=== PATIENT | female | born 1980 ===

== ENCOUNTER 2016-12-22 16:07 | Observation (INO) | payer MEDICAID ==
[2016-12-22 16:25] VITALS: BMI 28.1
[2016-12-22 16:28] VITALS: BP 109/72; PULSE 67; RESP 16; TEMP 99.2; O2SAT 100
--- NOTE | 2016-12-22 16:55 | ED PDOC ---
Arrival/HPI - General Chief Complaint: Female Genitourinary Time Seen by Provider: 12/22/16 16:39 Historian: Patient - History of Present Illness Narrative History of Present Illness (Text): 12/22/16 16:53 36yr old female: g4, p1, A2 presents today with vaginal spotting that started this morning. pt states she thinks she is about 6 weeks . pt has appointment with [facility] scheduled for next week. pt states today she noticed some brown discharge, then developed slight lower abdominal cramping. pt states just prior to coming the ER she noticed the discharge is now red. pt states it is still minimal discharge and has not filled up a pad yet. denies fever/chills. no cp or sob. no urinary symptoms. no back pain. no other complaints. Past Medical History - Provider Review Nursing Documentation Reviewed: Yes - Travel History Have you recently traveled outside [place] w/in the past 3 mons?: No - Infectious Disease Hx of Infectious Diseases: None - Past Medical History Past Medical History: No Previous - Renal Hx Kidney Stones: Yes - Musculoskeletal/Rheumatological Hx Falls: No - Psychiatric Hx Depression: No Hx Emotional Abuse: No Hx Physical Abuse: No Hx Substance Use: Yes (marijuana) - Past Surgical History Past Surgical History: No Previous - Surgical History Hx Appendectomy: Yes (1999) Other/Comment: ovarin cystectomy / January 2015 - Anesthesia Hx Anesthesia: Yes Hx Anesthesia Reactions: No Hx Malignant Hyperthermia: No - Suicidal Assessment Feels Threatened In Home Enviroment: No Family/Social History - Physician Review Nursing Documentation Reviewed: Yes Family/Social History: Unknown Family HX Smoking Status: Light Smoker < 10 Cigarettes Daily Hx Alcohol Use: Yes (social) Hx Substance Use: Yes (marijuana) Substance used: marijuana Hx Substance Use Treatment: No Allergies/Home Meds Allergies/Adverse Reactions: Allergies No Known Allergies Allergy (Verified 10/20/16 15:38) Review of Systems - Review of Systems Constitutional: absent: Fatigue, Fevers Respiratory: absent: SOB, Cough Cardiovascular: absent: Chest Pain, Palpitations Gastrointestinal: Abdominal Pain. absent: Constipation, Diarrhea, Nausea, Vomiting Genitourinary Female: Frequency, Vaginal Bleeding. absent: Dysuria, Hematuria, Vaginal Discharge Musculoskeletal: absent: Arthralgias, Back Pain, Neck Pain Skin: absent: Rash, Pruritis Neurological: absent: Headache, Dizziness Physical Exam Vital Signs Reviewed: Yes Vital Signs Temp Pulse Resp BP Pulse Ox 12/22/16 16:25 99.2 F 67 16 109/72 100 Temperature: Afebrile Blood Pressure: Normal Pulse: Regular Respiratory Rate: Normal Appearance: Positive for: Well-Appearing, Non-Toxic, Comfortable Pain Distress: None Mental Status: Positive for: Alert and Oriented X 3 - Systems Exam Head: Present: Atraumatic Neck: Present: Normal Range of Motion Respiratory/Chest: Present: Clear to Auscultation, Good Air Exchange. No: Respiratory Distress, Accessory Muscle Use Cardiovascular: Present: Regular Rate and Rhythm, Normal S1, S2. No: Murmurs Abdomen: Present: Normal Bowel Sounds. No: Tenderness, Distention, Peritoneal Signs, Rebound, Guarding Genitourinary/Pelvic Exam: Present: Normal External Genitalia, Vaginal Bleeding (minimal vaginal bleeding noted. ), Cervical os Closed, Other (chaparoned by daniel ABEBE RN). No: Vaginal Lesions, Adenexal Tenderness, Adenexal Mass, Cervical Motion Tendernes Back: Present: Normal Inspection. No: CVA Tenderness Skin: Present: Warm, Dry, Normal Color. No: Rashes Psychiatric: Present: Alert, Oriented x 3 Medical Decision Making ED Course and Treatment: 12/22/16 16:55 Patient is nontoxic well appearing in no distress. vital signs are stable. CBC: wnl CMP: wnl Beta hC.54 TYPE AND SCREEN: B+ Urinalysis: 10-15 white blood cells, trace leukocytes, positive bacteria Ultrasound:FINDINGS: Uterus: Uterus is retroflexed. The uterus measures approximately 9 x 5.5 x 5.6 cm. Endometrium measures approximately 14 mm in width. Left ovary: Left ovary measures approximately 2 x 2 x 2.1 cm. Right ovary: Right ovary could not be identified Fluid: There is no free fluid. IMPRESSION: Nonvisualization right ovary, no intrauterine or ectopic gestation identified TECHNIQUE: Real-time transvaginal obstetrical ultrasound of the maternal pelvis and a first trimester with image documentation. Transvaginal imaging was used for better evaluation of the fetus and adnexa. FINDINGS: Uterus: uterus measures approximately 8 x 5 x 6 cm. There is a 1.6 x 1.2 x 1.6 cm left uterine body fibroid. Endometrium measures approximately 14.4 mm in width. Endometrium is heterogeneous. There is no endometrial blood flow on color Doppler imaging No intrauterine gestation is identified. Right ovary: Right ovary measures approximately 2.9 x 2.1 x 2.4 cm. There is expected blood flow on Doppler imaging Left ovary: Left ovary measures approximately 2.9 x 2.4 x 2.9 cm. There is a dominant follicle. There are smaller follicles.There is expected blood flow on Doppler imaging Fluid: There is no free fluid Adnexa: There are no adnexal masses IMPRESSION: Thickened endometrium, no intrauterine or ectopic gestation identified will treat with macrobid for UTI. Discussed all the results the patient. advised f/u with the obstetrician gynecologist within the next 2 days. advised repeat beta hcg in 2 days. advised immediate return if symptoms worsen,persist or if new symptoms develop. discussed ectopic in depth with the patient. stressed importance of immediate f/u with any concerning symptoms develop. Patient verbalizes understanding of discharge instructions and need for immediate followup. all aspects of this case were discussed the attending of record. Impression: vaginal bleeding, + test, abdominal pain Tylenol every 4 hours as needed for pain Nitrofurantoin; twice daily x 10 days Increase fluids Followup with the director of the biophysics facility within the next 2 days Return immediately if symptoms worsen persist or if new symptoms develop: High fevers, heavy bleeding, severe abdominal pain, vomiting, diarrhea, dizziness or weakness or any other concerning symptoms develop. Repeat beta hCG in 48 hours - Lab Interpretations Lab Results: 12/22/16 16:50 12/22/16 16:50 Lab Results 12/22/16 17:22: Blood Type B POSITIVE, Antibody Screen Negative, BBK History Checked No verified bt 12/22/16 16:50: WBC 9.8 D, RBC 4.49, Hgb 13.8, Hct 39.7, MCV 88.4, MCH 30.7, MCHC 34.8, RDW 13.1, Plt Count 182, MPV 9.4, Gran % 77.7 H, Lymph % (Auto) 16.2 L, [place] % (Auto) 5.0, Eos % (Auto) 0.9 L, Baso % (Auto) 0.2, Gran # 7.60 H, Lymph # 1.6, [place] # 0.5, Eos # 0.1, Baso # 0.02, Sodium 137, Potassium 3.7, Chloride 104, Carbon Dioxide 25, Anion Gap 12, BUN 8, Creatinine 0.6, Est GFR ( Amer) > 60, Est GFR (Non-Af Amer) > 60, Random Glucose 93, Calcium 9.4, Total Bilirubin 0.6, AST 26, ALT 63 H, Alkaline Phosphatase 59, Total Protein 7.2, Albumin 4.0, Globulin 3.2, Albumin/Globulin Ratio 1.3, Beta HCG, Quant 144.54 H, Urine Color Dark yellow, Urine Appearance Bloody, Urine pH 6.0, Ur Specific [place] 1.025, Urine Protein 30 H, Urine Glucose (UA) Negative, Urine Ketones 40 H, Urine Blood Large H, Urine Nitrate Negative, Urine Bilirubin Negative, Urine Urobilinogen 1.0 H, Ur Leukocyte Esterase Trace H, Urine RBC Tntc, Urine WBC 10 - 15, Ur Epithelial Cells 1 - 3, Urine Bacteria Small, Urine HCG, Qual Positive - RAD Interpretation Radiology Orders: 12/22/16 16:39 OB TRANSVAGINAL [US] Stat ED OBSERVATION Discharge: Yes Date of observation admission: 12/22/16 Time of observation admission: 16:30 - Observation admission statement Patient is being placed in observation because:: abdominal pain, vaginal bleeding - Goals of Observation Goals of observation are:: improvement in symptoms. - Progress Note Progress Note: 12/22/16 18:00 no distress. resting comfortably 12/22/16 20:06 discussed all results with patient ; advised abx and return in 2 days for repeat beta hcg. Disposition/Present on Arrival - Present on Arrival Any Indicators Present on Arrival: No History of DVT/PE: No History of Uncontrolled Diabetes: No Urinary Catheter: No History of Decub. Ulcer: No History Surgical Site Infection Following: None - Disposition Have Diagnosis and Disposition been Completed?: Yes Diagnosis: Positive test, Abdominal pain, Vaginal bleeding, UTI (urinary tract infection) Disposition: HOME/ ROUTINE Disposition Time: 20:07 Patient Plan: Discharge Patient Problems: Current Active Problems Problem Status Diagnosed Abdominal pain Acute Positive test Acute UTI (urinary tract infection) Acute Vaginal bleeding Acute Condition: GOOD Discharge Instructions (ExitCare): Urinary Tract Infection in (ED) Additional Instructions: Tylenol every 4 hours as needed for pain Nitrofurantoin; twice daily x 10 days Increase fluids Followup with the director of the biophysics facility within the next 2 days Return immediately if symptoms worsen persist or if new symptoms develop: High fevers, heavy bleeding, severe abdominal pain, vomiting, diarrhea, dizziness or weakness or any other concerning symptoms develop. Repeat beta hCG in 48 hours Prescriptions: Nitrofurantoin Macrocrystals [Macrobid] 100 mg PO BID #20 cap Referrals: Marietta Barrientos DO [Primary Care Provider] - Follow up with primary Alvin Brannon [Medical Doctor] - Follow up with primary David Laureano MD [Medical Doctor] - Follow up with primary Forms: WORK NOTE
[2016-12-22 17:02] LABS: ADD MANUAL DIFF? NO
[2016-12-22 17:18] LABS: ALB/GLOB RATIO 1.3 (1.1-1.8); ALKALINE PHOSPHATASE 59 U/L (38-133); ALT/SGPT 63 U/L (7-56); AST/SGOT 26 U/L (15-39); BILIRUBIN,TOTAL 0.6 mg/dL (0.2-1.3); BLOOD UREA NITROGEN 8 mg/dL (7-21); CALCIUM 9.4 mg/dL (8.4-10.5); CARBON DIOXIDE 25 mmol/L (21-33); CHLORIDE 104 mmol/L (98-107); GFR AFRICAN-AMERICAN > 60; GLUCOSE,RANDOM 93 mg/dL (70-110); POTASSIUM 3.7 mmol/L (3.6-5.0); SODIUM 137 mmol/L (132-148); TOTAL PROTEIN 7.2 g/dL (5.8-8.3)
[2016-12-22 17:31] LABS: URINE BILIRUBIN NEGATIVE (NEGATIVE); URINE BLOOD LARGE (NEGATIVE); URINE GLUCOSE (UA) NEGATIVE (NEGATIVE); URINE KETONE 40 mg/dL (NEGATIVE); URINE LEUKOCYTE ESTERASE TRACE Leu/uL (NEGATIVE); URINE PROTEIN 30 mg/dL (<30 mg/dL)
[2016-12-22 17:32] LABS: BASO # 0.02 K/mm3 (0.0-2.0); BASO % 0.2 % (0.0-3.0); EOS # 0.1 (0.0-0.7); EOS % 0.9 % (1.5-5.0); GRAN % 77.7 % (50.0-68.0); HEMATOCRIT 39.7 % (36.0-48.0); LYMPH # 1.6 (1.2-3.4); LYMPH % 16.2 % (22.0-35.0); MEAN CELL VOLUME 88.4 fL (80.0-105.0); MEAN CORPUSCULAR HEMOGLOBIN 30.7 pg (25.0-35.0); MEAN CORPUSCULAR HGB CONC 34.8 g/dl (31.0-37.0); MEAN PLATELET VOLUME 9.4 fl (7.0-11.0); MONO # 0.5 (0.1-0.6); PLATELET COUNT 182 10^3/uL (120.0-450.0); RED CELL DISTRIBUTION WIDTH 13.1 % (11.5-14.5); WHITE BLOOD COUNT 9.8 10^3/ul (4.5-11.0)
[2016-12-22 17:34] LABS: URINE COLOR DARK YELLOW (YELLOW)
[2016-12-22 17:35] LABS: URINE APPEARANCE BLOODY (CLEAR)
[2016-12-22 17:47] LABS: URINE BACTERIA SMALL (NEG); URINE RBC TNTC /hpf (0-2)
--- NOTE | 2016-12-22 19:55 | US ---
EXAM: US First Trimester, Transabdominal CLINICAL HISTORY: 36 years old, female; Signs and symptoms; Lmp or gestational age (in weeks): 11/02/2016, 7 weeks 1 day by dates; Other: Bleeding; Additional info: /bleeding/+ucg TECHNIQUE: Real-time transabdominal obstetrical ultrasound of the maternal pelvis and a first trimester with image documentation. COMPARISON: There are no prior studies for comparison. FINDINGS: Uterus: Uterus is retroflexed. The uterus measures approximately 9 x 5.5 x 5.6 cm. Endometrium measures approximately 14 mm in width. Left ovary: Left ovary measures approximately 2 x 2 x 2.1 cm. Right ovary: Right ovary could not be identified Fluid: There is no free fluid. IMPRESSION: Nonvisualization right ovary, no intrauterine or ectopic gestation identified EXAM: US , Transvaginal CLINICAL HISTORY: 36 years old, female; Signs and symptoms; Lmp or gestational age (in weeks): 11/02/2016, 7 weeks 1 day by dates; Other: Bleeding; Additional info: /bleeding/+ucg TECHNIQUE: Real-time transvaginal obstetrical ultrasound of the maternal pelvis and a first trimester with image documentation. Transvaginal imaging was used for better evaluation of the fetus and adnexa. EXAM DATE/TIME: 12/22/2016 4:39 PM COMPARISON: There are no prior studies for comparison. FINDINGS: Uterus: uterus measures approximately 8 x 5 x 6 cm. There is a 1.6 x 1.2 x 1.6 cm left uterine body fibroid. Endometrium measures approximately 14.4 mm in width. Endometrium is heterogeneous. There is no endometrial blood flow on color Doppler imaging No intrauterine gestation is identified. Right ovary: Right ovary measures approximately 2.9 x 2.1 x 2.4 cm. There is expected blood flow on Doppler imaging Left ovary: Left ovary measures approximately 2.9 x 2.4 x 2.9 cm. There is a dominant follicle. There are smaller follicles.There is expected blood flow on Doppler imaging Fluid: There is no free fluid Adnexa: There are no adnexal masses IMPRESSION: Thickened endometrium, no intrauterine or ectopic gestation identified Correlation with serial beta hCG levels advised
== END 2016-12-22 20:30 | disposition home or self-care (01) ==
LOC: ED 16:07 → EROBSV 16:30
PROVIDERS: ADMIT Emergency Medicine; ATTEND Emergency Medicine
DX: O46.91 Antepartum hemorrhage, unspecified, first trimester (principal); O23.41 Unspecified infection of urinary tract in pregnancy, first trimester; Z3A.01 Less than 8 weeks gestation of pregnancy; R10.9 Unspecified abdominal pain
CPT/HCPCS: 76817; 80053; 81001; 84702; 84703; 85025; 86850; 86900; 87086; 99285; G0378